=== PATIENT | male | born 1990 | race Caucasian/White ===

== ENCOUNTER 2017-12-13 06:11 | Emergency (ER) | payer MEDICAID ==
[~2017-12-13] VITALS: Ht 172.7 cm; Wt 83.9 kg
[2017-12-13 06:53] VITALS: BP 111/93
[2017-12-13] MEDS ORDERED: cefTRIAXone SOD 1,000 MG VL IM ONE (07:15)
[2017-12-13] MEDS ORDERED: KETOROLAC TROMETH 60MG/2ML VIAL IM ONE (07:15)
== END 2017-12-13 07:40 | disposition home or self-care (01) ==
LOC: ER 06:14
DX: J03.90 Acute tonsillitis, unspecified (principal); I88.9 Nonspecific lymphadenitis, unspecified; F17.210 Nicotine dependence, cigarettes, uncomplicated; Z88.0 Allergy status to penicillin
CPT/HCPCS: 96372; 99284; J0696; J1885